=== PATIENT | female | born 1980 | race American Indian/Alaskan Native ===

== ENCOUNTER 2020-09-13 13:09 | Emergency (ER) | payer SELFPAY ==
[2020-09-13 14:01] VITALS: BP 129/88
--- NOTE | 2020-09-13 14:02 | Event Note ---
ED Screening Note Date of service: 09/13/20 Time: 14:02 ED Screening Note: Patient complains of vaginal bleeding and abdominal cramping along with nausea and vomiting Positive home test Last menstrual cycle June 2020 This initial assessment/diagnostic orders/clinical plan/treatment(s) is/are subject to change based on patients health status, clinical progression and re- assessment by fellow clinical providers in the ED. Further treatment and workup at subsequent clinical providers discretion. Patient/guardian urged not to elope from the ED as their condition may be serious if not clinically assessed and managed. Initial orders include: Labs Ultrasound
--- NOTE | 2020-09-13 14:16 | Emergency Department Report ---
ED General Adult HPI - General Chief complaint: Abdominal Pain Stated complaint: ABDOMINAL PAIN/SPOTTING Time Seen by Provider: 09/13/20 14:00 Source: patient Mode of arrival: Ambulatory Limitations: No Limitations - History of Present Illness Initial comments: Patient is a 40-year-old female presents emergency room with complaints of abdominal pain that began a few days ago. She states that her abdomen has been increasing in size. She states that she also has nausea and some tenderness to her nipples. She states that she believes she may be . She states that she took 2 [id number] test and they were positive. She states that she does have a history of fibroids as well and is not sure if her fibroids are enlarging and that is why her abdomen has enlarged. She has not seen [facility]. She denies any vomiting, diarrhea, fever, dysuria, urinary symptoms, abnormal vaginal discharge. She denies any other past medical history except for the fibroids. Allergy to Tdap and eggs. /P: 3/A: 3 - Related Data Previous Rx's Medication Instructions Recorded Last Taken Type Acetaminophen [Tylenol] 650 mg PO Q8HR PRN #20 capsule 09/13/20 Unknown Rx Metoclopramide [Reglan] 10 mg PO Q8HR PRN #10 tab 09/13/20 Unknown Rx Allergies Allergy/AdvReac Type Severity Reaction Status Date / Time egg Allergy Unknown Verified 09/13/20 13:52 tetanus and diphtheria Allergy Unknown Verified 09/13/20 13:52 toxoids ED Review of Systems ROS: Stated complaint: ABDOMINAL PAIN/SPOTTING Other details as noted in HPI Comment: All other systems reviewed and negative ED Past Medical Hx - Medications Home Medications: Home Medications Medication Instructions Recorded Confirmed Last Taken Type Acetaminophen [Tylenol] 650 mg PO Q8HR PRN #20 capsule 09/13/20 Unknown Rx Metoclopramide [Reglan] 10 mg PO Q8HR PRN #10 tab 09/13/20 Unknown Rx ED Physical Exam - General Limitations: No Limitations General appearance: alert, in no apparent distress - Head Head exam: Present: atraumatic, normocephalic - Eye Eye exam: Present: normal appearance - ENT ENT exam: Present: mucous membranes moist - Respiratory Respiratory exam: Present: normal lung sounds bilaterally. Absent: respiratory distress, wheezes, rales, rhonchi, stridor, chest wall tenderness, accessory muscle use, decreased breath sounds, prolonged expiratory - Cardiovascular Cardiovascular Exam: Present: regular rate, normal rhythm, normal heart sounds. Absent: systolic murmur, diastolic murmur, rubs, gallop - GI/Abdominal GI/Abdominal exam: Present: soft, distended, normal bowel sounds. Absent: tenderness, guarding, rebound, rigid - Neurological Exam Neurological exam: Present: alert, oriented X3 - Psychiatric Psychiatric exam: Present: normal affect, normal mood - Skin Skin exam: Present: warm, dry, intact ED Course Vital Signs 09/13/20 13:44 Temperature 97.3 F L Pulse Rate 98 H Respiratory 20 Rate Blood Pressure 129/88 O2 Sat by Pulse 100 Oximetry ED Medical Decision Making - Lab Data Result diagrams: 09/13/20 14:54 09/13/20 14:54 Lab Results 09/13/20 09/13/20 09/13/20 Range/Units 14:54 14:54 14:54 WBC 6.8 (4.5-11.0) K/mm3 RBC 4.24 (3.65-5.03) M/mm3 Hgb 13.5 (10.1-14.3) gm/dl Hct 38.7 (30.3-42.9) % MCV 91 (79-97) fl MCH 32 (28-32) pg MCHC 35 H (30-34) % RDW 14.1 (13.2-15.2) % Plt Count 431 (140-440) K/mm3 Lymph % (Auto) 36.9 H (13.4-35.0) % [place] % (Auto) 12.2 H (0.0-7.3) % Eos % (Auto) 2.1 (0.0-4.3) % Baso % (Auto) 0.7 (0.0-1.8) % Lymph # (Auto) 2.5 (1.2-5.4) K/mm3 [place] # (Auto) 0.8 (0.0-0.8) K/mm3 Eos # (Auto) 0.1 (0.0-0.4) K/mm3 Baso # (Auto) 0.0 (0.0-0.1) K/mm3 Seg Neutrophils % 48.1 (40.0-70.0) % Seg Neutrophils # 3.3 (1.8-7.7) K/mm3 Sodium 141 (137-145) mmol/L Potassium 4.7 (3.6-5.0) mmol/L Chloride 106.6 (98-107) mmol/L Carbon Dioxide 26 (22-30) mmol/L Anion Gap 13 mmol/L BUN 7 (7-17) mg/dL Creatinine 0.6 (0.6-1.2) mg/dL Estimated GFR > 60 ml/min BUN/Creatinine Ratio 12 % Glucose 97 (65-100) mg/dL Calcium 9.5 (8.4-10.2) mg/dL Total Bilirubin 0.20 (0.1-1.2) mg/dL AST 20 (5-40) units/L ALT 18 (7-56) units/L Alkaline Phosphatase 48 (35-129) units/L Total Protein 6.8 (6.3-8.2) g/dL Albumin 4.5 (3.9-5) g/dL Albumin/Globulin Ratio 2.0 % Lipase 37 (13-60) units/L HCG, Quant 747.2 H (0-4) mIU/mL Urine Color (Yellow) Urine Turbidity (Clear) Urine pH (5.0-7.0) Ur Specific [place] (1.003-1.030) Urine Protein (Negative) mg/dL Urine Glucose (UA) (Negative) mg/dL Urine Ketones (Negative) mg/dL Urine Blood (Negative) Urine Nitrite (Negative) Urine Bilirubin (Negative) Urine Urobilinogen (<2.0) mg/dL Ur Leukocyte Esterase (Negative) Urine WBC (Auto) (0.0-6.0) /HPF Urine RBC (Auto) (0.0-6.0) /HPF U Epithel Cells (Auto) (0-13.0) /HPF Urine Mucus /HPF Blood Type 09/13/20 09/13/20 Range/Units 14:54 Unknown WBC (4.5-11.0) K/mm3 RBC (3.65-5.03) M/mm3 Hgb (10.1-14.3) gm/dl Hct (30.3-42.9) % MCV (79-97) fl MCH (28-32) pg MCHC (30-34) % RDW (13.2-15.2) % Plt Count (140-440) K/mm3 Lymph % (Auto) (13.4-35.0) % [place] % (Auto) (0.0-7.3) % Eos % (Auto) (0.0-4.3) % Baso % (Auto) (0.0-1.8) % Lymph # (Auto) (1.2-5.4) K/mm3 [place] # (Auto) (0.0-0.8) K/mm3 Eos # (Auto) (0.0-0.4) K/mm3 Baso # (Auto) (0.0-0.1) K/mm3 Seg Neutrophils % (40.0-70.0) % Seg Neutrophils # (1.8-7.7) K/mm3 Sodium (137-145) mmol/L Potassium (3.6-5.0) mmol/L Chloride (98-107) mmol/L Carbon Dioxide (22-30) mmol/L Anion Gap mmol/L BUN (7-17) mg/dL Creatinine (0.6-1.2) mg/dL Estimated GFR ml/min BUN/Creatinine Ratio % Glucose (65-100) mg/dL Calcium (8.4-10.2) mg/dL Total Bilirubin (0.1-1.2) mg/dL AST (5-40) units/L ALT (7-56) units/L Alkaline Phosphatase (35-129) units/L Total Protein (6.3-8.2) g/dL Albumin (3.9-5) g/dL Albumin/Globulin Ratio % Lipase (13-60) units/L HCG, Quant (0-4) mIU/mL Urine Color Yellow (Yellow) Urine Turbidity Clear (Clear) Urine pH 5.0 (5.0-7.0) Ur Specific [place] 1.023 (1.003-1.030) Urine Protein 30 mg/dl (Negative) mg/dL Urine Glucose (UA) Neg (Negative) mg/dL Urine Ketones Neg (Negative) mg/dL Urine Blood Neg (Negative) Urine Nitrite Neg (Negative) Urine Bilirubin Neg (Negative) Urine Urobilinogen < 2.0 (<2.0) mg/dL Ur Leukocyte Esterase Neg (Negative) Urine WBC (Auto) 2.0 (0.0-6.0) /HPF Urine RBC (Auto) 3.0 (0.0-6.0) /HPF U Epithel Cells (Auto) 5.0 (0-13.0) /HPF Urine Mucus Few /HPF Blood Type A POSITIVE - Radiology Data Radiology results: report reviewed OB ultrasound Radiologist Khadar Joy Junior, Impression probable very early intrauterine gestational sac in the endometrial canal correlating with a 5-week 0-day . No pole or heart tones are seen at this time. Close interval follow-up is recommended. - Medical Decision Making Patient is a 40-year-old female presents emergency room with complaints of abdominal pain that began a few days ago. She states that her abdomen has been increasing in size. She states that she also has nausea and some tenderness to her nipples. She states that she believes she may be . She states that she took 2 [id number] test and they were positive. She states that she does have a history of fibroids as well and is not sure if her fibroids are enlarging and that is why her abdomen has enlarged. She has not seen [facility]. She denies any vomiting, diarrhea, fever, dysuria, urinary symptoms, abnormal vaginal discharge. She denies any other past medical history except for the fibroids. Allergy to Tdap and eggs. /P: 3/A: 3. No abdominal tenderness on exam, no guarding, no rebound, no rigidity, normal bowel sounds, no peritoneal signs. Labs are stable. hCG quant is 747. UA is within normal limits. Patient is Rh+. OB ultrasound probable very early intrauterine gestational sac in the endometrial canal correlating with a 5-week 0-day . No pole or heart tones are seen at this time. Close interval follow-up is recommended. Discussed all findings with patient and answered questions. Discussed early IUP versus threatened miscarriage at this time. Discussed the importance of close [facility] follow-up. Patient given prescription for Tylenol and Reglan. Advised patient Please take medication as prescribed. Increase your water intake. Please practice pelvic rest. Please take a vitamin [id number]. Please follow-up with [facility]. It is very important that you follow-up. Return to emergency room immediately for any new or worsening symptoms. Critical care attestation.: If time is entered above; I have spent that time in minutes in the direct care of this critically ill patient, excluding procedure time. ED Disposition Clinical Impression: Early stage of Disposition: DC-01 TO HOME OR SELFCARE Is pt being admited?: No Does the pt Need Aspirin: No Condition: Stable Instructions: Abdominal Pain (ED) Additional Instructions: Please take medication as prescribed. Increase your water intake. Please practice pelvic rest. Please take a vitamin [id number]. Please follow-up with [facility]. It is very important that you follow-up. Return to emergency room immediately for any new or worsening symptoms. Prescriptions: Metoclopramide [Reglan] 10 mg PO Q8HR PRN #10 tab PRN Reason: Nausea And Vomiting Acetaminophen [Tylenol] 650 mg PO Q8HR PRN #20 capsule PRN Reason: pain Referrals: [facility] [Provider Group] - 3-5 Days [facility] [Provider Group] - 3-5 Days [facility] [Provider Group] - 3-5 Days [facility] [Provider Group] - 3-5 Days [facility] [Primary Care Provider] - 3-5 Days Time of Disposition: 16:40 Print Language: BENGALI
[2020-09-13 15:03] LABS: Bilirubin,Urine NEG (Negative); Blood,Urine NEG (Negative); Color,Urine Yellow (Yellow); Mucus,Urine FEW /HPF; Urobilinogen,Urine < 2.0 mg/dL (<2.0)
[2020-09-13 15:07] LABS: Basophils % (Auto) 0.7 % (0.0-1.8); Eosinophils # (Auto) 0.1 K/mm3 (0.0-0.4); Eosinophils % (Auto) 2.1 % (0.0-4.3); Hematocrit 38.7 % (30.3-42.9); Hemoglobin 13.5 gm/dl (10.1-14.3); Lymphocytes # (Auto) 2.5 K/mm3 (1.2-5.4); Lymphocytes % (Auto) 36.9 % (13.4-35.0); Mean Corpuscular HGB Conc 35 % (30-34); Mean Corpuscular Volume 91 fl (79-97); Monocytes # (Auto) 0.8 K/mm3 (0.0-0.8); Monocytes % (Auto) 12.2 % (0.0-7.3); Platelet Count 431 K/mm3 (140-440); Red Blood Count 4.24 M/mm3 (3.65-5.03); Red Cell Distribution Width 14.1 % (13.2-15.2)
[2020-09-13 15:29] LABS: Alanine Aminotransferase 18 units/L (7-56); Albumin 4.5 g/dL (3.9-5); Blood Urea Nitrogen 7 mg/dL (7-17); Calcium 9.5 mg/dL (8.4-10.2); Hemolysis Index 5
[2020-09-13 15:34] LABS: BUN/Creatinine Ratio 12
--- NOTE | 2020-09-13 16:28 | Ultrasound Report ---
FIRSTTRIMESTER OBSTETRIC ULTRASOUND ULTRASOUND OB TRANSVAGINAL HISTORY: Vaginal bleeding and cramping COMPARISON: None. TECHNIQUE: Routine transabdominal and transvaginal OB ultrasound performed. FINDINGS: The uterus is anteverted and measures 8.8 x 4.8 x 6.4 cm. There is a tiny cyst in the endometrial com plex measuring 2.7 mm. No pole or heart tones are demonstrated at this time. This may represent a very early intrauterine gestational sac correlating with a 5 week 0 day . There is also a small 6 mm cyst or fibroid in the anterior myometrium adjacent to the endometrial str ipe. The endometrium measures 14 mm in thickness. The right ovary measures 3.1 x 1.4 x 2.5 cm. The left ovary measures 3.3 x 1.5 x 2.4 cm. No adnexal l esion. No pelvic fluid. IMPRESSION Probable very early intrauterine gestational sac in the endometrial canal correlating with a 5 week 0 day . No pole or heart tones are seen at this time. Close interval follow-up is recommended. Signer Name: Khadar Joy Jr, MD Signed: 09/13/2020 4:23 PM Workstation Name: [id number]
== END 2020-09-13 16:56 | disposition home or self-care (01) ==
LOC: ED 13:09
DX: R10.9 Unspecified abdominal pain (principal); Z34.01 Encounter for supervision of normal first pregnancy, first trimester; Z3A.01 Less than 8 weeks gestation of pregnancy
CPT/HCPCS: 36415; 76801; 76817; 80053; 81001; 83690; 84702; 85025; 86900; 86901